=== PATIENT | female | born 1975 | race Caucasian/White ===

== ENCOUNTER → 2018-06-12 | Outpatient (CLI) | payer OTHER ==
--- NOTE | 2018-06-12 15:03 | KCIC ---
EXAM: MRI Left KNEE DATE: 06/12/2018 12:30 PM CLINICAL INDICATION: Left knee pain for one week COMPARISON: None. TECHNIQUE: Multiplanar multisequence MR imaging of the left knee. No IV contrast administered. FINDINGS: Small left knee joint effusion. No Castellon's cyst. ACL is intact however there is mild increased signal suggesting low-grade sprain. PCL is intact. The MCL, fibular collateral ligament, biceps femoris and IT band are intact. The popliteus tendon is normal in signal and morphology. Medial and lateral menisci are intact. Extensor mechanism is intact. Neutral patellar tracking. 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 No evidence of fracture or osteonecrosis. There is a full-thickness cartilage defect at the lateral femoral condyle measuring 1.3 x 0.5 cm. No significant subchondral edema. Intermittent fissuring at the patellar apex with subchondral edema. IMPRESSION: 1. Full-thickness cartilage defect at the posterior weightbearing surface of the lateral femoral condyle. 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 2. No discrete meniscal tear is identified. Electronically signed by: Byron Kolb MD (06/12/2018 3:00 PM) [id number]
== END | disposition home or self-care (01) ==
LOC: KCIC MRI 11:51
PROVIDERS: ATTEND Physician Assistant Medical
DX: M22.42 Chondromalacia patellae, left knee (principal); R60.0 Localized edema
CPT/HCPCS: 73721